=== PATIENT | female | born 2005 | race Caucasian/White ===

== ENCOUNTER 2024-03-08 07:06 | Emergency (ER) | payer OTHER, SELFPAY ==
--- OUTSIDE RECORDS SUMMARY | 2024-03-08 07:10 | XMS REPORT | Continuity of Care Document ---
Author Name Unknown Address [address] [place] [address] [address] [place] [address] [facility] thconnect Address [address] [place] [address] [address] [place] [address] Care Team Providers Care Esthetician Spa Name Role Phone [email or web address]_Kadiyala_S Attending Clinician Unavaila ble GC_GCBZW_Kadiyala_S Admitting Clinician Unavaila ble Payers Payer Name Policy Type Policy Number Effective Date Expirati on Date Source [place] [id number] 2021 00:00:00 Problems Condition Name Condition Details Condition Category Status Onset Date Resolution Date Last Treatment Date Treating Clinician Comments Source Insulin resistance Insulin Resistance Problem Active 24 00:00: 00 [facility] Oligomenor ashley Oligomenor ashley Problem Active 3-15 00:00: 00 [facility] Allergies, Adverse Reactions, Alerts Allergy Name Allergy Type Status Severity Reaction(s) Onset Date Inactive Date Treating Clinician Comments Source Cleocin Allergy to substanc e Active [facility] PENICILL INS Allergy to substanc e Active Hives [facility] Social History Smoking Status Start Date Stop Date Source Never Smoker [facility] Medications Ordered Medication Name Filled Medication Name Start Date Stop Date Current Medication? Ordering Clinician Indication Dosage Frequency Signature (SIG) Comments Components Source metformin 500 mg tablet Take 1 tablet twice a day by oral route for 90 days. metformin 500 mg tablet Take 1 tablet twice a day by oral route for 90 days. No 1 BID metformin 500 mg tablet Take 1 tablet twice a day by oral route for 90 days. [facility] Vital Signs Vital Name Observation Time Observation Value Comments S ource Body Weight 2024-02-21 00:00:00 241.6 [lb_av] [facility] Height 2024-02-21 00:00:00 65 [in_i] [facility] BP Diastolic 2024-02-21 00:00:00 84 mm[Hg] [facility] BP Systolic 2024-02-21 00:00:00 138 mm[Hg] [facility] BMI (Body Mass Index) 2024-02-21 00:00:00 40.2 kg/m2 [facility] Height 2023-11-19 00:00:00 64 [in_i] [facility] BP Systolic 2023-11-19 00:00:00 129 mm[Hg] [facility] BP Diastolic 2023-11-19 00:00:00 93 mm[Hg] [facility] BP Systolic 2023-11-05 00:00:00 136 mm[Hg] [facility] Height 2023-11-05 00:00:00 64 [in_i] [facility] BMI (Body Mass Index) 2023-11-05 00[facility]00[facility]00 [facility] 2023-11-05 00:00:00 246 [lb_av] [facility] BP Diastolic 2023-11-05 00:00:00 102 mm[Hg] [facility] Procedures Procedure Date / Time Performed Performing Clinicia n Source Transvaginal Us Non-ob 2023-11-12 00:00:00 [facility] US, transvaginal 2023-11-12 00:00:00 [facility] Encounters Start Date/Time End Date/Time Encounter Type Admission Type Attending [facility] Care Facility Care Department Encounter ID Source 2024-02-21 00:00:00 2024-02-21 00:00:00 AZEEM Montgomery: [address], [place] [address] , Ph. [facility] - GC_GCBZW_Nelsy [facility]* [id number] [facility] 2023-12-04 00:00:00 2023-12-04 00:00:00 Outpatient GC_GCBZW_Ka diyala_S [facility] [id number] [facility] 2023-12-02 00:00:00 2023-12-02 00:00:00 Outpatient GC_GCBZW_Ka diyala_S PRIV PRIV [id number] [facility] 2023-11-19 00:00:00 2023-11-19 00:00:00 DONY Lara: [address], [place] [address] , Ph. GC_GCBZW_Ka diyala_S [facility] - GC_GCBZW_Nelsy fox Farzad* [id number] [facility] 2023-11-12 00:00:00 2023-11-12 00:00:00 Lay Goetz MD: [address], [place] [phone] , Ph. GC_GCBZW_Ka diyala_S [facility] - GC_GCBZW_Nelsy fox Far[facility]* [id number] [facility] 2023-11-12 00:00:00 2023-11-12 00:00:00 Lay Goetz MD: [address], [place] [phone] , Ph. [facility] - GC_GCBZW_Nelsy fox [facility]* [id number] [facility] 2023-11-08 00:00:00 2023-11-08 00:00:00 Outpatient GC_GCBZW_Ka diyala_S [facility] [id number] [facility] 2023-11-05 00:00:00 2023-11-05 00:00:00 DONY Lara: [address], [place] [phone] , Ph. [facility] - GC_GCBZW_Nelsy fox Farzad* [id number] [facility] 2023-11-05 00:00:00 2023-11-05 00:00:00 DONY Lara: [address], [place] [phone] , Ph. GC_GCBZW_Ka diyala_S [facility] - GC_GCBZW_Nelsy Panda* [id number] [facility] 2023-11-04 00:00:00 2023-11-04 00:00:00 Outpatient GC_GCBZW_Ka diyala_S [facility] [id number] [facility] 2023-10-19 00:00:00 2023-10-19 00:00:00 Outpatient GC_GCBZW_Ka diyala_S [facility] [id number] [facility] Results Test Description Test Time Test Comments Results Result Co mments Source [facility]75-Kqfeqplcsasvqlczetm [Mass/volume] in Serum or [id number] 00:00:00* Test Item Value Reference Range Interpretation Comme nts 17-hydroxyprogesterone (test code = 17-hydroxyprogesterone) 75 NG/dL see below [facility] Center[facility]natzbl33-Rfgmmtezhiobbdnqsgt [Mass/volume] in Serum or [id number] 00:00:00* Test Item Value Reference Range Interpretation Comme nts 17-hydroxyprogesterone (test code = 17-hydroxyprogesterone) 75 NG/dL see below [facility] CenterDehydroepiandrosterone sulfate (DHEA-S) [Mass/volume] in Serum or [id number] 00:00:00* Test Item Value Reference Range Interpretation Comme nts DHEA-S (test code = DHEA-S) 159.0 ug/dL 98.8-340.0 [facility] [Mass/volume] in Serum or [id number] 00:00:00* Test Item Value Reference Range Interpretation Comme nts testosterone (test code = testosterone) 43.9 NG/dL 8.4-48.1 [facility] CenterGlucose [Mass/volume] in Serum or [id number] 00:00:00* Test Item Value Reference Range Interpretation Comme nts glucose (test code = glucose) 88 mg/dL 70-99 [facility] CenterThyrotropin [Units/volume] in Serum or [id number] 00:00:00* Test Item Value Reference Range Interpretation Comme nts TSH (test code = TSH) 3.540 uIU/mL 0.178-4.530 [facility] panel - Serum or [id number] 00:00:00* Test Item Value Reference Range Interpretation Comme nts cholesterol (test code = cholesterol) 181 mg/dL 0-200 triglycerides (test code = triglycerides) 85 mg/dL 10-150 HDL cholesterol (test code = HDL cholesterol) 44 mg/dL >50 L HDL risk factor (test code = HDL risk factor) 4.1 calc. VLDL cholesterol (test code = VLDL cholesterol) 17 calc Cholesterol in LDL [Mass/vol ume] in Serum or Plasma (test code = 2089-1) 117 mg/dL <100 H [facility]Dehydroepiandrosterone sulfate (DHEA-S) [Mass/volume] in Serum or [id number] 00:00:00* Test Item Value Reference Range Interpretation Comme nts DHEA-S (test code = DHEA-S) 159.0 ug/dL 98.8-340.0 [facility]osterone [Mass/volume] in Serum or [id number] 00:00:00* Test Item Value Reference Range Interpretation Comme nts testosterone (test code = testosterone) 43.9 NG/dL 8.4-48.1 [facility]ucose [Mass/volume] in Serum or [id number] 00:00:00* Test Item Value Reference Range Interpretation Comme nts glucose (test code = glucose) 88 mg/dL 70-99 [facility]yrotropin [Units/volume] in Serum or [id number] 00:00:00* Test Item Value Reference Range Interpretation Comme nts TSH (test code = TSH) 3.540 uIU/mL 0.178-4.530 [facility] - Serum or [id number] 00:00:00* Test Item Value Reference Range Interpretation Comme nts cholesterol (test code = cholesterol) 181 mg/dL 0-200 triglycerides (test code = triglycerides) 85 mg/dL 10-150 HDL cholesterol (test code = HDL cholesterol) 44 mg/dL >50 L HDL risk factor (test code = HDL risk factor) 4.1 calc. VLDL cholesterol (test code = VLDL cholesterol) 17 calc Cholesterol in LDL [Mass/vol ume] in Serum or Plasma (test code = 2089-1) 117 mg/dL <100 H [facility]Insulin [Units/volume] in Serum or Plasma --[id number] 00:00:00* Test Item Value Reference Range Interpretation Comme nts insulin, fasting (test code = insulin, fasting) 40.7 u[IU]/mL 2.6-24.9 H [facility]Insulin [Units/volume] in Serum or Plasma --[id number] 00:00:00* Test Item Value Reference Range Interpretation Comme nts insulin, fasting (test code = insulin, fasting) 40.7 u[IU]/mL 2.6-24.9 H [facility]regnancy test, [id number] 10:12:00* Test Item Value Reference Range Interpretation Comme nts HCG (test code = HCG) negative [facility], [id number] 10:12:00* Test Item Value Reference Range Interpretation Comme nts HCG (test code = HCG) negative [facility]
[2024-03-08] MEDS ORDERED: NA CHLORIDE 0.9% 1,000 ML ONE (07:20)
[2024-03-08] MEDS ORDERED: ONDANSETRON 4 MG/2 ML VIAL ONE (07:20)
[2024-03-08] MEDS ORDERED: MORPHINE 2 MG/ML SYR ONE (07:20)
[2024-03-08 07:46] LABS: Absolute Basophils 0.1 K/uL (0-0.5); Absolute Eosinophils 0.3 K/uL (0-0.5); Absolute Lymphocytes (CBC) 1.9 K/uL (0.7-4.9); Absolute Monocytes 0.4 K/uL (0.1-1.3); Absolute Neutrophil 6.3 K/uL (1.8-8.0); Basophils % 0.7 % (0-1.3); Eosinophils % 2.8 % (0-4.4); Hematocrit 35.3 % (36.0-45.0); Hemoglobin 11.3 g/dL (12.0-15.0); Lymphocytes % 20.8 % (15.3-44.8); MCH 23.9 pg (27.0-35.0); MCHC 31.9 g/dL (32.0-36.0); MPV 7.3 fL (7.6-11.3); Monocytes % 4.9 % (3.3-12.3); Neutrophils % 70.8 % (41.7-73.7); Platelets 444 thou/uL (152-406); RBC Red Blood Cell Count 4.71 M/uL (3.86-4.86); Red Cell Distribution Width 16.5 % (12.1-15.2)
[2024-03-08 07:50] LABS: Sqamous Epithelial <5 /HPF (None Seen); Urine Bacteria <20 /HPF (<20); Urine Bilirubin NEGATIVE (Negative); Urine Blood Negative (Negative); Urine Clarity Clear (Clear); Urine Color Yellow (Yellow); Urine Culture Reflex Order NOT NEEDED; Urine Glucose NEGATIVE (Negative); Urine Ketones TRACE (Negative); Urine Microscopic Reflex YN ORDER UMIC; Urine Mucus Slight /HPF (None Seen); Urine Nitrite NEGATIVE (Negative); Urine Protein TRACE (Negative); Urine RBC <5 /HPF (None Seen); Urine Urobilinogen Normal (Normal); Urine WBC <5 /HPF (<5); Urine pH 5.5 (5.0-7.0)
[2024-03-08 08:00] LABS: ALT/SGPT 20 U/L (13-56); Albumin 3.5 g/dL (3.4-5.0); Albumin/Globulin Ratio 0.9 (1.1-1.8); Alkaline Phosphatase 88 U/L (45-117); Anion Gap 7.1 mEq/L (5.0-15.0); BUN Blood Urea Nitrogen 12 mg/dL (7-18); Bicarbonate 25 mEq/L (21-32); Bilirubin Total 0.5 mg/dL (0.2-1.0); Globulin 3.7 g/dL (2.3-3.5); Glomerular Filtration Rate 103 ml/min (=/>90); Glucose Level 111 mg/dL (74-106); Lipase 18 U/L (13-75); Potassium 3.1 mEq/L (3.5-5.1); Protein, Total 7.2 g/dL (6.4-8.2); Sodium Level 140 mEq/L (136-145)
[2024-03-08 08:04] LABS: AST/SGOT < 10 U/L (15-37)
--- NOTE | 2024-03-08 08:29 | RAD REPORT ---
EXAM DESCRIPTION: CT - Abdomen Pelvis W Contrast - 03/08/2024 8:04 am CLINICAL HISTORY: Abdominal pain COMPARISON: none. TECHNIQUE: Computed axial tomography of the abdomen pelvis was obtained. 100 cc Isovue-300 was admin istered intravenously. Oral contrast was not requested which limits evaluation of bowel and appendix All CT scans are performed using dose optimization technique as appropriate and may include automated exposure control or mA/KV adjustment according to patient size. FINDINGS: The liver, spleen, pancreas, adrenal and kidneys appear unremarkable. There is no evidence of diverticulitis. Normal appendix There may be an arcuate uterus. No adnexal mass. Small amount of free fluid may be physiologic. Small umbilical hernia IMPRESSION: No significant abnormality is displayed
--- NOTE | 2024-03-08 08:34 | EDPHYS ---
Physician Documentation [facility] Name: Alondra Goodman Age: 18 yrs Sex: Female : 2005 Arrival Date: 03/08/2024 Time: 07:06 Bed 12 Private MD: ED Physician Galileo Benito HPI: 03/08 07:16 This 18 yrs old Female presents to ER via Unassigned with complaints of shoaib Abdominal Pain, RT SIDE ABD PAIN. 07:16 The patient presents with abdominal pain in the left upper quadrant, in the left lower shoaib quadrant, abdominal distention in the upper abdomen, in the lower abdomen. Onset: The symptoms/episode began/occurred this morning. The symptoms do not radiate. Associated signs and symptoms: none. Modifying factors: The symptoms are alleviated by nothing, the symptoms are aggravated by nothing. Severity of pain: At its worst the pain was moderate in the emergency department the pain is unchanged. The patient has experienced similar episodes in the past, a few times. Historical: - Allergies: 07:19 PENICILLINS; ll1 07:19 Cleocin; ll1 - Home Meds: 07:19 Metformin Oral [Active]; ll1 - PMHx: 07:19 PCOS; ll1 - PSHx: 07:19 None; ll1 - Immunization history:: Adult Immunizations up to date. - Infectious Disease History:: Denies. - Family history:: not pertinent. - Social history:: Smoking status: Patient denies any tobacco usage or history of. ROS: 07:16 Constitutional: Negative for fever, chills, and weight loss, Eyes: Negative for injury, shoaib pain, redness, and discharge, ENT: Negative for injury, pain, and discharge, Neck: Negative for injury, pain, and swelling, Cardiovascular: Negative for chest pain, palpitations, and edema, Respiratory: Negative for shortness of breath, cough, wheezing, and pleuritic chest pain, Back: Negative for injury and pain, : Negative for injury, bleeding, discharge, and swelling, MS/Extremity: Negative for injury and deformity, Skin: Negative for injury, rash, and discoloration, Neuro: Negative for headache, weakness, numbness, tingling, and seizure, Psych: Negative for depression, anxiety, suicide ideation, homicidal ideation, and hallucinations, Allergy/Immunology: Negative for hives, rash, and allergies, Endocrine: Negative for neck swelling, polydipsia, polyuria, polyphagia, and marked weight changes, Hematologic/Lymphatic: Negative for swollen nodes, abnormal bleeding, and unusual bruising, 07:16 Abdomen/GI: Positive for abdominal pain, of the left upper quadrant and left lower quadrant, Exam: 07:16 Constitutional: This is a well developed, well nourished patient who is awake, alert, shoaib and in no acute distress. Head/Face: Normocephalic, atraumatic. Eyes: Pupils equal round and reactive to light, extra-ocular motions intact. Lids and lashes normal. Conjunctiva and sclera are non-icteric and not injected. Cornea within normal limits. Periorbital areas with no swelling, redness, or edema. ENT: Nares patent. No nasal discharge, no septal abnormalities noted. Tympanic membranes are normal and external auditory canals are clear. Oropharynx with no redness, swelling, or masses, exudates, or evidence of obstruction, uvula midline. Mucous membranes moist. Neck: Trachea midline, no thyromegaly or masses palpated, and no cervical lymphadenopathy. Supple, full range of motion without nuchal rigidity, or vertebral point tenderness. No Meningismus. Chest/axilla: Normal chest wall appearance and motion. Nontender with no deformity. No lesions are appreciated. Cardiovascular: Regular rate and rhythm with a normal S1 and S2. No gallops, murmurs, or rubs. Normal PMI, no JVD. No pulse deficits. Respiratory: Lungs have equal breath sounds bilaterally, clear to auscultation and percussion. No rales, rhonchi or wheezes noted. No increased work of breathing, no retractions or nasal flaring. Back: No spinal tenderness. No costovertebral tenderness. Full range of motion. Skin: Warm, dry with normal turgor. Normal color with no rashes, no lesions, and no evidence of cellulitis. MS/ Extremity: Pulses equal, no cyanosis. Neurovascular intact. Full, normal range of motion. Neuro: Awake and alert, GCS 15, oriented to person, place, time, and situation. Cranial nerves II-XII grossly intact. Motor strength 5/5 in all extremities. Sensory grossly intact. Cerebellar exam normal. Normal gait. Psych: Awake, alert, with orientation to person, place and time. Behavior, mood, and affect are within normal limits. 07:16 Abdomen/GI: Inspection: distension, that is mild, that is moderate, Bowel sounds: normal, Palpation: mild abdominal tenderness, in the left upper quadrant and left lower quadrant, Liver: no appreciated palpable abnormalities, Hernia: not appreciated, Vital Signs: 07:21 BP 135 / 100; Pulse 81; Resp 17; Temp 98.1; Pulse Ox 100% on R/A; Weight 108.86 kg; ll1 Height 5 ft. 5 in. ; Pain 10/10; 07:48 BP 119 / 97; Pulse 83; Resp 18; Pulse Ox 98% on R/A; ph 09:21 BP 108 / 82; Pulse 89; Resp 18; Temp 97.6; Pulse Ox 99% on R/A; ph 07:21 Body Mass Index 39.94 (108.86 kg, 165.1 cm) - Percentile 98.4 % ll1 07:21 Pain Scale: Adult ll1 MDM: 07:11 Patient medically screened. [facility] 07:21 Differential diagnosis: diverticulitis, non-specific abd pain, pancreatitis, shoaib Pyelonephritis, Ureterolithiasis, urinary tract infection. Data reviewed: vital signs, nurses notes, lab test result(s), radiologic studies, CT scan. Consideration of Admission/Observation Escalation of care including admission/observation considered. I considered the following discharge prescriptions or medication management in the emergency department Medications were administered in the Emergency Department. See MAR. Independent interpretation of the following test(s) in the Emergency Department CT Scan: My interpretation is ct abd pelvis. Test considered but Not performed: Ultrasound no abd usg. Historians other than the Patient: Parent: mom well informed. Care significantly affected by the following chronic conditions: Obesity, pcos. Counseling: I had a detailed discussion with the patient and/or guardian regarding the historical points, exam findings, and any diagnostic results supporting the discharge/admit diagnosis, lab results. 03/08 07:12 Order name: CBC with Diff; Complete Time: 08:32 [facility] 03/08 07:12 Order name: CMP; Complete Time: 08:32 [facility] 03/08 07:12 Order name: Lipase; Complete Time: 08:32 [facility] 03/08 07:12 Order name: Test, Urine; Complete Time: 08: [facility] 03/08 07:12 Order name: Urinalysis w/ reflexes; Complete Time: 08:32 [facility] 03/08 07:16 Order name: CT Abd/Pelvis - IV Contrast Only; Complete Time: 08:32 [facility] 03/08 07:12 Order name: IV Saline Lock; Complete Time: 07:46 [facility] 03/08 07:12 Order name: Labs collected and sent; Complete Time: 07:46 [facility] Administered Medications: 07:46 Drug: NS 0.9% IV 1000 ml IV at 1 bolus Per protocol; 1000 mL bolus Route: IV; Rate: 1 ph bolus; Site: right antecubital; 09:22 Follow up: Response: No adverse reaction; IV Status: Completed infusion; IV Intake: ph 1000ml 07:46 Drug: Ondansetron IVP 4 mg IVP once; over 2 minutes Route: IVP; Site: right antecubital;ph 09:22 Follow up: Response: No adverse reaction ph 09:05 Not Given (Other Intervention Used): morphineor iv 2 mg IVP once over 4 mins ph 09:05 Not Given (Other Intervention Used): vnhpcesxsu96 mg IVP once; dilute with 10 mL 0.9% ph NaCl; give over 2 minutes 09:22 Drug: Potassium PO Effervescent Tablet 50 mEq PO once; dissolve in 4 ounces of water or ph juice Route: PO; 09:22 Follow up: Response: No adverse reaction ph Disposition Summary: 03/08/24 08:33 Discharge Ordered Notes: Location: Home [facility] Problem: new shoaib Symptoms: have improved shoaib Condition: Stable shoaib Diagnosis - Abdominal pain, unspecified shoaib - Diarrhea, unspecified shoaib - Iron deficiency anemia, unspecified shoaib - Hypokalemia shoaib Followup: [facility] - With: Private Physician - When: 2 - 3 days - Reason: Recheck today's complaints, Re-evaluation by your physician Discharge Instructions: - Discharge Summary Sheet shoaib - Abdominal Pain, Adult shoaib - Iron Deficiency Anemia, Adult shoaib - Anemia shoaib - Food Choices to Help Relieve Diarrhea, Adult shoaib - Diarrhea, Adult shoaib - Potassium Content of Foods shoaib - Iron Deficiency Anemia, Adult, Sefs-fd-Ieuf shoaib - Hypokalemia [facility] Forms: - Medication Reconciliation Form shoaib - Antibiotic Education shoaib - Prescription Opioid Use shoaib - Patient Portal Instructions [facility] - Leadership Thank You Letter [facility] Prescriptions: - ondansetron 4 mg Oral Tablet,disintegrating - take 1 tablet ORAL route every 6 hours as needed for nausea and vomiting; 20 shoaib tablet; Refills: 0, Product Selection Permitted - Pepcid 20 mg Oral tablet - take 1 tablet ORAL route every 12 hours for 21 days; 42 tablet; Refills: 0, shoaib Product Selection Permitted - Potassium Chloride 20 meq Oral Packet - take 1 packet ORAL route once daily 1 packet in 6 (six) ounces of water or shoaib juice; Take after meal; 10 packet; Refills: 0, Product Selection Permitted - dicyclomine 20 mg Oral tablet - take 1 tablet ORAL route 4 times per day; 28 tablet; Refills: 0, Product shoaib Selection Permitted Signatures: Dispatcher [employer] EDMS Galileo Benito MD MD cha Hall, Patricia, RN RN Julita Aldridge RN RN ll1 Corrections: (The following items were deleted from the chart) 07:13 07:13 CBC+H.LAB.BRZ ordered. EDMS EDMS 07:13 07:13 COMPREHENSIVE METABOLIC PANEL+C.LAB.BRZ ordered. EDMS EDMS 07:13 07:13 LIPASE+C.LAB.BRZ ordered. EDMS EDMS 07:13 07:13 Test, Urine+UC.LAB.BRZ ordered. EDMS EDMS 07:13 07:13 Urinalysis+U.LAB.BRZ ordered. EDMS EDMS
--- NOTE | 2024-03-08 08:34 | ER ---
Nurse's Notes [facility] [place] Name: Alondra Goodman Age: 18 yrs Sex: Female : 2005 Arrival Date: 03/08/2024 Time: 07:06 Bed 12 Private MD: Diagnosis: Abdominal pain, unspecified;Diarrhea, unspecified;Iron deficiency anemia, unspecified;Hypokalemia Presentation: 03/08 07:21 Chief complaint: Patient states: L sided abdominal pain since 11 PM last night. 1 ll1 episode of diarrhea. Coronavirus screen: Client denies travel out of the [place] in the last 14 days. At this time, the client does not indicate any symptoms associated with coronavirus-19. Ebola Screen: Patient denies travel to an Ebola-affected area in the 21 days before illness onset. Initial Sepsis Screen: Does the patient meet any 2 criteria? No. Patient's initial sepsis screen is negative. Does the patient have a suspected source of infection? No. Patient's initial sepsis screen is negative. Risk Assessment: Do you want to hurt yourself or someone else? Patient reports no desire to harm self or others. Onset of symptoms was March 07, 2024. 07:21 Method Of Arrival: Ambulatory ll1 07:21 Acuity: RAUL 3 ll1 Triage Assessment: 07:22 General: Appears uncomfortable, Behavior is calm, cooperative, appropriate for age. ll1 Pain: Complains of pain in left upper quadrant Pain currently is 10 out of 10 on a pain scale. Quality of pain is described as aching. Neuro: No deficits noted. Cardiovascular: No deficits noted. Respiratory: No deficits noted. GI: Reports upper abdominal pain, diarrhea. Historical: - Allergies: 07:19 PENICILLINS; ll1 07:19 Cleocin; ll1 - Home Meds: 07:19 Metformin Oral [Active]; ll1 - PMHx: 07:19 PCOS; ll1 - PSHx: 07:19 None; ll1 - Immunization history:: Adult Immunizations up to date. - Infectious Disease History:: Denies. - Family history:: not pertinent. - Social history:: Smoking status: Patient denies any tobacco usage or history of. Screenin:47 [facility] ED Fall Risk Assessment (Adult) History of falling in the last 3 months, ph including since admission No falls in past 3 months (0 pts) Confusion or Disorientation No (0 pts) Intoxicated or Sedated No (0 pts) Impaired Gait No (0 pts) Mobility Assist Device Used No (0 pt) Altered Elimination No (0 pt) Score/Fall Risk Level 0 - 2 = Low Risk Oriented to surroundings, Maintained a safe environment, Hourly rounding (assess needs \T\ fall precautionary measures) done. Abuse screen: Denies threats or abuse. Denies injuries from another. Nutritional screening: No deficits noted. Tuberculosis screening: No symptoms or risk factors identified. Assessment: 07:46 General: Appears in no apparent distress. comfortable, Behavior is calm, cooperative, ph appropriate for age. Pain: Complains of pain in umbilical area, left upper quadrant and left lower quadrant. Neuro: Level of Consciousness is awake, alert, obeys commands, Oriented to person, place, time, situation. Cardiovascular: Capillary refill < 3 seconds in bilateral fingers Patient's skin is warm and dry. Respiratory: Airway is patent Respiratory effort is even, unlabored. GI: Bowel sounds present X 4 quads. Abd is soft and non tender X 4 quads. Reports lower abdominal pain, upper abdominal pain, diarrhea, nausea. : No signs and/or symptoms were reported regarding the genitourinary system. Derm: Skin is pink, warm \T\ dry. Vital Signs: 07:21 BP 135 / 100; Pulse 81; Resp 17; Temp 98.1; Pulse Ox 100% on R/A; Weight 108.86 kg; ll1 Height 5 ft. 5 in. ; Pain 10/10; 07:48 BP 119 / 97; Pulse 83; Resp 18; Pulse Ox 98% on R/A; ph 09:21 BP 108 / 82; Pulse 89; Resp 18; Temp 97.6; Pulse Ox 99% on R/A; ph 07:21 Body Mass Index 39.94 (108.86 kg, 165.1 cm) - Percentile 98.4 % ll1 07:21 Pain Scale: Adult ll1 ED Course: 07:10 Patient arrived in ED. gm2 07:11 Galileo Benito MD is Attending Physician. shoaib 07:14 Lizzy Muir RN is Primary Nurse. ph 07:19 Arm band placed on Patient placed in an exam room, on a stretcher. ll1 07:22 Triage completed. ll1 07:46 CBC with Diff Sent. ph 07:46 CMP Sent. ph 07:46 Lipase Sent. ph 07:46 Urinalysis w/ reflexes Sent. ph 07:47 Patient has correct armband on for positive identification. Bed in low position. Call ph light in reach. Side rails up X 1. Pulse ox on. NIBP on. Door closed. Noise minimized. 07:48 Initial lab(s) drawn, by tx, sent to lab. Urine collected:. Inserted saline lock: 20 ph gauge in right antecubital area, using aseptic technique. Blood collected. 08:04 CT Abd/Pelvis - IV Contrast Only In Process Unspecified. EDMS 09:21 No provider procedures requiring assistance completed. IV discontinued, intact, ph bleeding controlled, No redness/swelling at site. Pressure dressing applied. Administered Medications: 07:46 Drug: NS 0.9% IV 1000 ml IV at 1 bolus Per protocol; 1000 mL bolus Route: IV; Rate: 1 ph bolus; Site: right antecubital; 09:22 Follow up: Response: No adverse reaction; IV Status: Completed infusion; IV Intake: ph 1000ml 07:46 Drug: Ondansetron IVP 4 mg IVP once; over 2 minutes Route: IVP; Site: right antecubital;ph 09:22 Follow up: Response: No adverse reaction ph 09:05 Not Given (Other Intervention Used): morphineor iv 2 mg IVP once over 4 mins ph 09:05 Not Given (Other Intervention Used): [id number] mg IVP once; dilute with 10 mL 0.9% ph NaCl; give over 2 minutes 09:22 Drug: Potassium PO Effervescent Tablet 50 mEq PO once; dissolve in 4 ounces of water or ph juice Route: PO; 09:22 Follow up: Response: No adverse reaction ph Medication: 07:47 VIS not applicable for this client. ph Intake: 09:22 IV: 1000ml; Total: 1000ml. ph Outcome: 08:33 Discharge ordered by . shoaib 09:21 Discharged to home ambulatory, with family, ph 09:21 Condition: good 09:21 Discharge instructions given to patient, Instructed on discharge instructions, follow up and referral plans. medication usage, Demonstrated understanding of instructions, follow-up care, medications, Prescriptions given X 4, 09:22 Patient left the ED. ph Signatures: Dispatcher [employer] Galileo Lew MD MD cha Hall, Lizzy, RN RN ph Julita Peters RN RN ll1 Ken, [facility]
[2024-03-08] MEDS ORDERED: POTASSIUM CL SA 10 MEQ TAB PO ONE (09:08)
[2024-03-08] MEDS ORDERED: POTASSIUM 25 MEQ EFFERV TAB ONE (09:08)
[2024-03-08 09:36] VITALS: BP 108/82; TEMP 97.6; O2SAT 99
== END 2024-03-08 09:22 | disposition home or self-care (01) ==
LOC: ER 07:06
DX: R10.32 Left lower quadrant pain (principal); R19.7 Diarrhea, unspecified; D50.9 Iron deficiency anemia, unspecified; E87.6 Hypokalemia
CPT/HCPCS: 36415; 74177; 80053; 81001; 81025; 83690; 85025; 96361; 96374; 99284; J2270; J2405; J7030; Q9967